=== PATIENT | male | born 1955 | race Caucasian/White ===

== ENCOUNTER 2018-09-16 05:38 | Inpatient (IN) | payer OTHER ==
[2018-09-16] MEDS ORDERED: NS 1,000 ML IV ONE (05:42)
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
[2018-09-16] MEDS ORDERED: IOPAMIDOL (ISOVUE-300) 100 ML BTL ONE ×3 (05:50→11:28)
[2018-09-16 06:24] LABS: PLATELET COUNT 277 10^3/uL (150-400)
[2018-09-16] MEDS ORDERED: fentaNYL 100 MCG/2 ML INJ ONE ×4 (06:34→12:23)
[2018-09-16] MEDS ORDERED: ONDANSETRON 4 MG/2 ML VIAL ONE (06:34)
[2018-09-16 06:35] LABS: INR 1.04 (0.83-1.16); PROTIME(PATIENT) 13.2 SEC (12.0-15.0)
[2018-09-16] MEDS ORDERED: ONDANSETRON 4 MG/2 ML VIAL IVP ONE (06:35)
[2018-09-16] MEDS ORDERED: fentaNYL 100 MCG/2 ML INJ IVP ONE (06:35)
[2018-09-16] MEDS ORDERED: HYDROmorphONE/DILAUDID 1 MG/ML INJ IVP ONE (07:42)
[2018-09-16] MEDS ORDERED: HYDROmorphONE/DILAUDID 2 MG/ML INJ IVP ONE ×2 (07:43→08:43)
[2018-09-16] MEDS ORDERED: HYDROmorphONE/DILAUDID 1 MG/ML INJ ONE ×2 (07:44→11:38)
[2018-09-16] MEDS ORDERED: ACETAMINOPHEN 325 MG TAB PO PRN (07:52)
[2018-09-16] MEDS ORDERED: ONDANSETRON 4 MG/2 ML VIAL IVP PRN (07:52)
[2018-09-16] MEDS ORDERED: LORazepam 2 MG/ML INJ IVP PRN (07:52)
[2018-09-16] MEDS ORDERED: NALOXONE HCL 0.4 MG/ML INJ IVP PRN ×2 (07:52→10:06)
[2018-09-16] MEDS ORDERED: ONDANSETRON DISINTEGRATING 4 MG TAB PO PRN (07:52)
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
[2018-09-16] MEDS ORDERED: FLUMAZENIL 0.5 MG/5 ML MDV IVP ONE (10:03)
[2018-09-16] MEDS ORDERED: MIDAZOLAM 2 MG/2 ML VIAL ONE (10:03)
[2018-09-16] MEDS ORDERED: PROTAMINE SULFATE 50 MG/5 ML VIAL IVP PRN (10:06)
[2018-09-16] MEDS ORDERED: HEPARIN 10,000 UNIT/10 ML MDV (1,000 UNIT/ML) IVP PRN (10:06)
[2018-09-16] MEDS ORDERED: MIDAZOLAM 2 MG/2 ML VIAL IVP PRN (10:06)
[2018-09-16] MEDS ORDERED: fentaNYL 100 MCG/2 ML INJ IVP PRN (10:06)
[2018-09-16] MEDS ORDERED: FLUMAZENIL 0.5 MG/5 ML MDV IVP PRN (10:06)
[2018-09-16] MEDS ORDERED: NS 1,000 ML IV SCH (10:15)
--- NOTE | 2018-09-16 10:56 | PDPROPOC ---
Sedation Plan of Care Sedation Plan of Care: vital signs stable, mental status noted, patient educated of risks, benefits, alternatives, patient can tolerate sedation ASA Classification: ASA 3 Planned drugs: fentanyl, midazolam Mallampati Score: Class 2 Mallampati Reference Image: Patient passed 3-3-2 rule?: Yes
--- NOTE | 2018-09-16 10:57 | PDRADPN ---
Radiology Procedure Note Date of Procedure: 09/16/18 Radiologist: Dina Alaniz Anesthesia: IV Sedation Pre-op Diagnosis: SPLENIC LACERATIONS Post-op Diagnosis: SAME Indication: ACTIVE EXTRAVESATION Procedure: SPLENIC ANGIOGRAM WITH EMBOLIZATION Finding(s): UPPER POLE INTRAPARENCHYMAL BLEEDING AND PSEUDOANEURYSM INVOLVING THREE BRANCHES. GELFOAM SLURRY EMBOLIZATION, RESOLVING ALL ABNORMAL VASCULARATURE WHILE PRESERVING SPLENIC PERFUSION. Inf/Abcess present in the surg proc area at time of surgery?: No
[2018-09-16] MEDS ORDERED: LIDOCAINE 1% 5 ML SDV ONE (11:28)
[2018-09-16] MEDS: HYDROmorphONE/DILAUDID 1 MG/ML INJ IVP PRN ×5 (11:42→20:13)
[2018-09-16] MEDS: fentaNYL 100 MCG/2 ML INJ IV PRN ×2 (12:25→12:46)
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
[2018-09-16] MEDS: HYDROCODONE/APAP 5/325 TAB PO PRN ×2 (17:59→22:15)
[2018-09-16] MEDS ORDERED: BISACODYL 10 MG SUPP PR PRN (19:13)
[2018-09-16] MEDS: SENNOSIDES/DOCUSATE SODIUM TAB PO SCH (20:07)
[2018-09-17] MEDS: HYDROCODONE/APAP 5/325 TAB PO PRN ×4 (02:03→22:17)
[2018-09-17] MEDS: HYDROmorphONE/DILAUDID 1 MG/ML INJ IVP PRN ×2 (04:16→23:30)
[2018-09-17 06:41] LABS: PLATELET COUNT 258 10^3/uL (150-400)
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
[2018-09-17] MEDS: SENNOSIDES/DOCUSATE SODIUM TAB PO SCH ×2 (09:16→21:55)
[2018-09-17] MEDS ORDERED: FAMOTIDINE 20 MG TAB PO PRN (10:14)
[2018-09-17] MEDS: KETOROLAC 15 MG/1 ML SDV IVP SCH ×3 (10:43→23:31)
[2018-09-17] MEDS: METHOCARBAMOL 750 MG TAB PO SCH ×2 (14:31→21:56)
[2018-09-17] MEDS ORDERED: HYDROCODONE/APAP 10/325 TAB PO ONE (18:00)
[2018-09-17] MEDS: TRIAMCINOLONE 0.1% 15 GM CRTUBE TP PRN (21:57)
[2018-09-18] MEDS: HYDROCODONE/APAP 5/325 TAB PO PRN ×3 (02:22→22:10)
[2018-09-18] MEDS: KETOROLAC 15 MG/1 ML SDV IVP SCH ×4 (06:05→23:56)
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
[2018-09-18] MEDS: METHOCARBAMOL 750 MG TAB PO SCH ×3 (08:46→21:19)
[2018-09-18] MEDS: SENNOSIDES/DOCUSATE SODIUM TAB PO SCH ×2 (08:46→21:19)
[2018-09-18] MEDS: TRIAMCINOLONE 0.1% 15 GM CRTUBE TP PRN (08:48)
[2018-09-18] MEDS: oxyCODONE IR 5 MG TAB PO PRN ×3 (10:10→18:11)
--- NOTE | 2018-09-18 14:57 | ASMTCMCOM ---
CM Note CM Note Notes: Pt was cleared to go home independently by PT and OT. No CM needs identified at this time. Pt will likely dc independently. CM available if needs arise. Plan: Independent Date Signed: 09/18/2018 02:56 PM Electronically Signed By:MADHURI Michel
[2018-09-18] MEDS ORDERED: FAMOTIDINE 20 MG TAB PO PRN (16:00)
[2018-09-18] MEDS ORDERED: diphenhydrAMINE 25 MG CAP PO PRN (20:06)
[2018-09-19] MEDS: HYDROCODONE/APAP 5/325 TAB PO PRN ×3 (03:46→19:46)
[2018-09-19] MEDS: KETOROLAC 15 MG/1 ML SDV IVP SCH ×4 (05:44→23:56)
[2018-09-19] MEDS: METHOCARBAMOL 750 MG TAB PO SCH ×3 (08:06→22:08)
[2018-09-19] MEDS: SENNOSIDES/DOCUSATE SODIUM TAB PO SCH ×2 (08:06→19:47)
[2018-09-19] MEDS: MAGNESIUM HYDROXIDE 30 ML UDCUP PO PRN (08:12)
[2018-09-19 10:11] LABS: PLATELET COUNT 310 10^3/uL (150-400)
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
[2018-09-19] MEDS: oxyCODONE IR 5 MG TAB PO PRN ×2 (11:23→15:32)
[2018-09-19] MEDS: DIAZEPAM 5 MG TAB PO PRN ×2 (12:24→19:47)
[2018-09-19] MEDS ORDERED: IOPAMIDOL (ISOVUE-300) 100 ML BTL ONE (12:46)
[2018-09-20] MEDS: HYDROCODONE/APAP 5/325 TAB PO PRN ×2 (00:09→08:44)
[2018-09-20] MEDS: DIAZEPAM 5 MG TAB PO PRN ×4 (02:54→22:01)
[2018-09-20] MEDS: POLYETHYLENE GLYCOL 3350 17 GM PKT PO PRN (03:00)
[2018-09-20] MEDS: oxyCODONE IR 5 MG TAB PO PRN ×2 (03:49→10:57)
[2018-09-20] MEDS: KETOROLAC 15 MG/1 ML SDV IVP SCH ×3 (05:53→17:57)
[2018-09-20] MEDS: LACTULOSE 20 GM/30 ML UDCUP PO PRN (08:46)
[2018-09-20] MEDS: SENNOSIDES/DOCUSATE SODIUM TAB PO SCH ×2 (08:46→22:56)
[2018-09-20] MEDS: METHOCARBAMOL 750 MG TAB PO SCH ×3 (08:47→22:01)
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
[2018-09-20] MEDS: HYDROmorphONE/DILAUDID 2 MG TAB PO PRN ×3 (14:02→19:14)
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
[2018-09-20] MEDS ORDERED: hydrALAZINE 20 MG/ML VIAL IVP PRN (15:40)
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
[2018-09-21] MEDS: KETOROLAC 15 MG/1 ML SDV IVP SCH ×4 (00:21→17:00)
[2018-09-21] MEDS: HYDROCODONE/APAP 5/325 TAB PO PRN ×3 (00:25→08:25)
[2018-09-21] MEDS: DIAZEPAM 5 MG TAB PO PRN ×2 (04:31→22:11)
[2018-09-21] MEDS: SENNOSIDES/DOCUSATE SODIUM TAB PO SCH ×2 (08:22→20:08)
[2018-09-21] MEDS: METHOCARBAMOL 750 MG TAB PO SCH ×3 (08:25→22:10)
[2018-09-21 10:04] LABS: PLATELET COUNT 390 10^3/uL (150-400)
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
[2018-09-21] MEDS: HYDROCODONE/APAP 10/325 TAB PO PRN ×2 (12:50→19:45)
[2018-09-21] MEDS: MAGNESIUM HYDROXIDE 30 ML UDCUP PO PRN (13:49)
[2018-09-21] MEDS: POLYETHYLENE GLYCOL 3350 17 GM PKT PO PRN (20:08)
[2018-09-22] MEDS: KETOROLAC 15 MG/1 ML SDV IVP SCH ×2 (00:44→05:37)
[2018-09-22] MEDS: HYDROCODONE/APAP 10/325 TAB PO PRN ×4 (02:04→22:13)
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
[2018-09-22] MEDS: METHOCARBAMOL 750 MG TAB PO SCH ×3 (08:36→22:14)
[2018-09-22] MEDS: SENNOSIDES/DOCUSATE SODIUM TAB PO SCH ×2 (08:36→22:01)
[2018-09-22] MEDS: GABAPENTIN 100 MG CAP PO SCH ×3 (08:54→22:14)
[2018-09-22] MEDS: LACTULOSE 20 GM/30 ML UDCUP PO PRN (08:56)
[2018-09-23] MEDS: HYDROCODONE/APAP 10/325 TAB PO PRN ×3 (04:13→16:52)
[2018-09-23] MEDS: traMADol 50 MG TAB PO PRN ×2 (06:20→14:15)
[2018-09-23 08:26] VITALS: BP 134/72
[2018-09-23] MEDS: METHOCARBAMOL 750 MG TAB PO SCH ×2 (09:05→16:53)
[2018-09-23] MEDS: GABAPENTIN 100 MG CAP PO SCH ×2 (09:05→16:53)
[2018-09-23] MEDS: SENNOSIDES/DOCUSATE SODIUM TAB PO SCH (09:09)
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
--- NOTE | 2018-09-23 09:42 | PDIAF ---
- Diagnosis Code Status: Full Code - Medication Management Discharge Medications: electronically signed and located in the Home Medication List. - Orders Diet Recommendation: no restrictions on diet Diet Texture: Regular Texture Diet Additional Instructions: Avoid strenuous lifting. Work on deep breathing to prevent atelectasis and pneumonia. office followup with dr lowe next week [phone] [place] 02 rx oxy ir - Follow Up Care Current Providers and Referrals: Patient,NotPresent [Primary Care Provider] - As per Instructions
--- NOTE | 2018-09-23 09:44 | PDHOMEO2F ---
Home Oxygen Face to Face Home Orders: I certify that a physician or a nurse practitioner or physician's assistant professor of archaeology has had a [id number] encounter with this patient on the date of this order due to the diagnosis listed, which relates to the primary reason the patient requires home oxygen. Alternative treatments have been tried, or considered, and deemed ineffective. It is anticipated that supplemental oxygen will result in improvement with treatment. Home oxygen qualifying diagnosis: rib fxs Home oxygen secondary diagnosis: spleen fx SpO2 on room air (%): 83 Frequency of home oxygen needed: during sleep Home oxygen liters per minute: 2 Home oxygen delivery device: nasal cannula Concentrator: Yes E-tanks for mobility and back up: Yes If ordering portable O2, is the patient mobile in the home?: Yes I certify that, based on these findings, the home oxygen is medically necessary for this patient for the following length of time. Length of time home oxygen needed: 1 month
--- NOTE | 2018-09-23 11:12 | PDHOMEO2F ---
Home Oxygen Face to Face Home Orders: I certify that a physician or a nurse practitioner or physician's assistant track and field coach has had a wega-iq-acve encounter with this patient on the date of this order due to the diagnosis listed, which relates to the primary reason the patient requires home oxygen. Alternative treatments have been tried, or considered, and deemed ineffective. It is anticipated that supplemental oxygen will result in improvement with treatment. Home oxygen qualifying diagnosis: RIB FX Home oxygen secondary diagnosis: SPLEEN FX SpO2 on room air (%): 83 Frequency of home oxygen needed: continuous, during sleep Home oxygen liters per minute: 2 Home oxygen delivery device: nasal cannula Concentrator: Yes E-tanks for mobility and back up: Yes If ordering portable O2, is the patient mobile in the home?: Yes I certify that, based on these findings, the home oxygen is medically necessary for this patient for the following length of time. Length of time home oxygen needed: 1 month
== END 2018-09-23 18:14 | disposition home or self-care (01) | DRG 988 ==
LOC: F2N 08:52 → F3N 09-17 11:46 → OBSVTOIN 09-20 15:50
PROVIDERS: ADMIT Surgery; ATTEND Surgery
PROC: 04L43DZ Occlusion of Splenic Artery with Intraluminal Device, Percutaneous Approach (ICD-10-PCS; principal; 2018-09-16 11:15)
DX: S36.032A Major laceration of spleen, initial encounter (principal); S22.42XA Multiple fractures of ribs, left side, initial encounter for closed fracture; S32.028A Other fracture of second lumbar vertebra, initial encounter for closed fracture; S32.038A Other fracture of third lumbar vertebra, initial encounter for closed fracture; S32.048A Other fracture of fourth lumbar vertebra, initial encounter for closed fracture; V43.52XA Car driver injured in collision with other type car in traffic accident, initial encounter; Y92.413 State road as the place of occurrence of the external cause; R40.2412 Glasgow coma scale score 13-15, at arrival to emergency department
CPT/HCPCS: 82435-PO; 82565-PO; 82947-PO; 84132-PO; 84295-PO; 84520-PO; 85014-ER; 92507-GN; 92523-GN; 96374; 97116-GP; 97161-GP; 97166-GO; 97530-GO; 97535-GO; C1760; C1769; G0378; J0360; J1170; J1644; J1885; J2250; J2270; J2310; J2405; J3010; Q9967